=== PATIENT | female | born 1975 | race Two or more races ===

== ENCOUNTER 2019-11-11 20:38 | Emergency (ER) | payer MEDICAID ==
[~2019-11-11] VITALS: Ht 160 cm; Wt 80.7 kg
[2019-11-11 21:04] VITALS: BP 147/85
== END 2019-11-12 | disposition left against medical advice (07) ==
LOC: ER 20:38
DX: Z53.21 Procedure and treatment not carried out due to patient leaving prior to being seen by health care provider (principal)